=== PATIENT | female | born 1995 | race Caucasian/White ===

== ENCOUNTER 2020-11-13 20:01 | Emergency (ER) | payer BC ==
[2020-11-13] MEDS ORDERED: AZITHROMYCIN250 MG PO (23:42)
== END 2020-11-14 | disposition home or self-care (01) ==
LOC: ER1 20:01
DX: O99.512 Diseases of the respiratory system complicating pregnancy, second trimester (principal); J06.9 Acute upper respiratory infection, unspecified; Z3A.15 15 weeks gestation of pregnancy; Z20.822 Contact with and (suspected) exposure to COVID-19
CPT/HCPCS: 99283; U0002